=== PATIENT | male | born 1985 | race Caucasian/White ===

== ENCOUNTER → 2023-04-26 | Outpatient (CLI) | payer BC, SELFPAY ==
[2023-04-26 11:54] LABS: Bacteria 0 SEEN /hpf (None Seen); Mucous, Urine 0 SEEN /hpf (<or=2+); Red Blood Cells-Urine 0 SEEN /hpf (0-5); Squamous Epithelial Cells - UA 0 SEEN /hpf (0-5); White Blood Cells 0 SEEN /hpf (0-5)
[2023-04-26 12:06] LABS: Color, Urine Yellow (Yellow); Glucose, Dipstick Normal (Normal); Ketone-Dipstick Negative (Negative); Leukocyte Esterase-Dipstick Negative /ul (Negative); Nitrite-Dipstick Negative (Negative); Occult Blood-Urine Negative /ul (Negative); Protein-Dipstick Negative (Negative); Specific Gravity, Urine 1.015 (1.002-1.030); Urine Bilirubin Dipstick Negative (Negative); Urine Clarity Clear (Clear); Urine Urobilinogen Normal (Normal)
[2023-04-26 12:07] LABS: Absolute Neutrophil Count 2.9 X10^3/uL (2.0-7.7); Basophil# 0.02 X10^3/uL; Basophil% 0.4 % (0-1); Eosinophil# 0.08 X10^3/uL; Eosinophils% 1.7 % (0-5); Hematocrit 42.4 % (40-54); Hemoglobin 13.9 g/dL (13.0-16.5); Lymphocyte % 23.9 % (19-41); Mean Corp Hgb Conc 32.8 g/dL (32-36); Mean Corpuscular Hgb 29.4 pg (27.0-32.0); Mean Corpuscular Volume 89.6 fL (80-94); Mean Platelet Vol. 9.5 fl (6.2-12.0); Monocyte# 0.45 X10^3/uL; Monocyte% 9.8 % (0-10); NRBC Flagged by Analyzer 0 % (0-5); Neutrophil # 2.94 X10^3/uL (2.7-7.7); Platelet Count 305 K/mm3 (150-450); RBC Distribution Width CV 12.2 % (11.6-14.6); RBC Distribution Width SD 40.6 fl (35.1-43.9); Red Blood Count 4.73 M/mm3 (4.6-6.2); White Blood Count 4.6 K/mm3 (4.4-11.0)
[2023-04-26 12:18] LABS: ALB/GLOB Ratio 1.1 RATIO (0.9-2.4); AST(SGOT) 35 U/L (15-37); Alanine Aminotransfer ALT/SGPT 36 U/L (16-61); Albumin, Serum 3.9 g/dL (3.2-5.0); Alkaline Phosphatase 48 U/L (45-117); Amylase 51 U/L (25-115); Anion Gap 6 (5-15); BUN 18 mg/dL (7-18); Calcium,Total 9.2 mg/dL (8.5-10.1); Chloride 104 mmol/L (98-107); Creatinine, Serum 0.86 mg/dL (0.70-1.30); EST Glomerular Filtration Rate 106 mL/min (>60); Est Glom Filt Rate - Afr Amer 128 mL/min (>60); Globulin 3.7 g/dL (2.2-4.2); Glucose 117 mg/dL (74-106); Lipase 31 U/L (13-75); Potassium 3.9 mmol/L (3.5-5.1); Protein, Total 7.6 g/dL (6.4-8.2); Sodium Level 138 mmol/L (136-145)
[2023-04-30 13:08] LABS: B. henselae IgG Negative titer (Neg:<1:320); B. henselae IgM Negative titer (Neg:<1:100); B. quintana IgG Negative titer (Neg:<1:320); B. quintana IgM Negative titer (Neg:<1:100); Lyme IgG P18 Ab Absent (.); Lyme IgG P23 Ab Absent (.); Lyme IgG P28 Ab Absent (.); Lyme IgG P30 Ab Absent (.); Lyme IgG P39 Ab Absent (.); Lyme IgG P41 Ab Present (.); Lyme IgG P45 Ab Absent (.); Lyme IgG P58 Ab Absent (.); Lyme IgG P66 Ab Absent (.); Lyme IgG P93 Ab Absent (.); Lyme IgG WB Interpretation Negative (.); Lyme IgM P23 Ab Absent (.); Lyme IgM P39 Ab Absent (.); Lyme IgM P41 Ab Absent (.); Lyme IgM WB Interpretation Negative (.)
== END | disposition home or self-care (01) ==
PROVIDERS: Referring Provider Nurse Practitioner Family; Visit Provider Nurse Practitioner Family
DX: R82.998 Other abnormal findings in urine (principal); R63.4 Abnormal weight loss; R10.9 Unspecified abdominal pain; K08.439 Partial loss of teeth due to caries, unspecified class; M25.579 Pain in unspecified ankle and joints of unspecified foot; F41.9 Anxiety disorder, unspecified
CPT/HCPCS: 80053; 81001; 82150; 83690; 85025; 86611; 86617

== ENCOUNTER → 2023-05-28 | Outpatient (CLI) | payer BC, SELFPAY ==
--- NOTE | 2023-05-28 09:08 | RDU_ITS ---
Reason For Study: Renal Cyst Right Renal Artery Left Renal Artery Right renal artery ostium Left renal artery ostium 112.5/25.6 147.4/43.8 RSV/EDV. PSV/EDV. Right renal artery proximal Left renal artery proximal PSV/EDV 111.5/32.0 PSV/EDV. 127.8/38.7 . Right renal artery mid 86.4/29.2 Left renal artery mid 1004./31.8 PSV/EDV. PSV/EDV . Right renal artery distal Left renal artery distal 91.7/22.8 112.4/43.3 PSV/EDV. PSV/EDV. Right RAR 1.62. Left RAR 1.41. Right Renal Parenchyma Left Renal Parenchyma Upper Pole Medula 38.0/12.8 Left upper pole medulla 31.8/12.0 PSV/EDV. PSV/EDV . Right upper pole medulla EDR 0.30 . Left upper pole medulla EDR 0.40 . Right upper pole medulla R.I. Left upper pole medulla R.I. 0.62 . 0.66 . UP Cortex 27.4/12.6 PSV/EDV. Upper Christian Cortx 25.1/11.0 PSV/EDV. Left upper pole cortex EDR 0.50 . Right upper pole cortex EDR 0.40 . Left upper pole cortex R.I. 0.54 . Right upper pole cortex R.I. 0.56 . Left lower Pole medulla 45.6/15.3 Right lower Pole medulla 30.0/11.6 PSV/EDV . PSV/EDV . Left lower pole medulla EDR 0.30 . Right lower pole medulla EDR 0.40 . Left lower pole medulla R.I. 0.66 . Right lower pole medulla R.I. Lower Pole Cortx 24.1/9.8 PSV/EDV. 0.61 . Left lower pole cortex EDR 0.40 . Lower Pole Cortex 20.8/8.5 PSV/EDV. Left lower pole cortex R.I. 0.59 . Right lower pole cortex EDR 0.40 . Left Renal Hilar Right lower pole cortex R.I. 0.59 . LT Hilar avg 96.6/34.7 PSV/EDV . Right Renal Hilar Left hilar acceleration time 20 Right Hilar avg 144.9/51.6 PSV/EDV. m/sec. Right hilar acceleration time 30 Left Renal Dimensions m/sec. Left kidney size 12.35 cm . Right Renal Dimensions Left cortical dimension 1.76 cm . Right kidney size 12.50 cm . Non vascularized anechoic area Right cortical dimension 1.88 cm . measuring approximately 1.34cm x 1.36cm is noted within the renal parenchyma. Aorta Proximal abdominal aorta 1.42 x 1.48 cm . Distal abdominal aorta 1.43 x 1.49 cm . Proximal abdominal aorta peak systolic velocity is 90.8 cm/sec . Distal abdominal aorta peak systolic velocity is 102.1 cm/sec . VL/Renal Artery Duplex Ultrasound Interpretation Summary Right renal artery patent with normal velocities and no evidence of stenosis Left renal artery patent with normal velocities and no evidence of stenosis Right renal vein patent Left renal vein patent Right kidney normal in size Left kidney normal in size. Non vascularized anechoic area measuring approximat dori 1.34cm x 1.36cm is noted within the renal parenchyma. Ordering Physician: Nicol Ivey Referring Physician: Nicol Ivey Performed By: Rick Dacosta RVT
== END | disposition home or self-care (01) ==
LOC: CVS 09:07
PROVIDERS: PCP Nurse Practitioner Family; Referring Provider Nurse Practitioner Family; Visit Provider Nurse Practitioner Family
DX: N28.1 Cyst of kidney, acquired (principal)
CPT/HCPCS: 93975